=== PATIENT | female | born 1960 | race Caucasian/White ===

== ENCOUNTER → 2016-09-11 | Outpatient (CLI) | payer OTHER ==
--- NOTE | 2016-09-11 14:37 | DI ---
XR ELBOW 2VW,09/11/2016 1:38 PM: Clinical History: Left elbow pain Previous Exam: November 06, 2015 Findings: 3 views of the left elbow are obtained, and demonstrate anatomic alignment without fractures. There i s no evidence of elbow joint effusion. There is no fracture. Impression: Normal left elbow.
== END ==
LOC: MOB RAD 13:45
PROVIDERS: ATTEND Nurse Practitioner Family
DX: M25.522 Pain in left elbow (principal)
CPT/HCPCS: 73070

== ENCOUNTER → 2016-09-18 | Outpatient (CLI) | payer OTHER ==
[2016-09-18 12:06] LABS: HEMATOCRIT 43.6 % (37.0-47.0); HEMOGLOBIN 15.1 g/dL (12.0-16.0); MEAN CORPUSCULAR HEMOGLOBIN 33.6 PG (27-31); MEAN CORPUSCULAR HGB CONC 34.6 g/dL (33-37); MEAN PLATELET VOLUME 8.2 FL (7.4-12.2); RED BLOOD COUNT 4.5 10^6/uL (4.20-5.40); WHITE BLOOD COUNT 6.7 10^3/uL (4.8-10.8)
[2016-09-18 12:35] LABS: AMYLASE 75 U/L (30-110); ASPARTATE AMINO TRANSFERASE 48 IU/L (8-39); BILIRUBIN,TOTAL 0.7 mg/dL (0.3-1.2); BLOOD UREA NITROGEN 9 mg/dL (7-22); CALCIUM 9.9 mg/dL (8.7-10.7); CHLORIDE 104 meq/L (98-112); CREATININE 0.6 mg/dL (0.50-1.20); EST GLOMERULAR FILTRATION > 60 (>60 ml/min/1.73m(2)); GLUCOSE 99 mg/dL (78-110); POTASSIUM 5.1 meq/L (3.8-5.2); TOTAL PROTEIN 8.9 g/dL (6.1-8.0)
[2016-09-18 12:43] LABS: SODIUM 139 meq/L (135-145)
--- NOTE | 2016-09-18 19:15 | DI ---
CT ABD W/WO CN AND PELVIS W/W0,09/18/2016 11:46 AM: Clinical History: Abdominal pain. Previous Exam: May 02, 2016 Findings: Multiple helically acquired CT images are obtained through the abdomen and pelvis after administratio n of oral contrast. There are also and images obtained following the intravenous administration of 95 cc of Isovue 300. There is no evidence of free air nor free fluid. There are no renal stones identified. Peripheral vascular calcifications are seen. The lung bases are clear. Patient is status post cholecystectomy. There are multiple colonic diverticula throughout the sigmoid colon without evidence of acute diverti culitis. There is no mesenteric nor retroperitoneal lymphadenopathy. Impression: No acute intra-abdominal pathology.
== END ==
LOC: CT 11:33
PROVIDERS: ATTEND Nurse Practitioner Family
DX: R10.84 Generalized abdominal pain (principal); F17.210 Nicotine dependence, cigarettes, uncomplicated
CPT/HCPCS: 36415; 74178; 80053; 82150; 83690; 85027

== ENCOUNTER → 2016-12-10 | Outpatient (CLI) | payer OTHER ==
--- NOTE | 2016-12-10 10:03 | DI ---
US PELVIC LIMITED (NON-OB),12/10/2016 7:46 AM: Clinical History: Pelvic pain Previous Exam: None at this facility. Findings: Static and real-time imaging of the right inguinal area demonstrate no evidence of herniation on Vals bolden or without Valsalva. Physical examination revealed some tenderness to deep palpation, but there was no abnormal mass ident ified within the region. Impression: No evidence of hernia.
== END ==
LOC: US 07:42
PROVIDERS: ATTEND Nurse Practitioner Family
DX: R10.2 Pelvic and perineal pain (principal)
CPT/HCPCS: 76857

== ENCOUNTER → 2017-01-24 | Outpatient (CLI) | payer OTHER ==
[2017-01-24 09:22] LABS: BASOPHILS # (AUTO) 0.05 10*3/UL; BASOPHILS % (AUTO) 0.8 % (0-1); EOSINOPHILS # (AUTO) 0.15 10*3/UL; EOSINOPHILS % (AUTO) 2.3 % (0-8); HEMATOCRIT 46.9 % (37.0-47.0); LYMPHOCYTES # (AUTO) 1.69 10*3/uL; MEAN CORPUSCULAR HEMOGLOBIN 33.4 PG (27-31); MEAN CORPUSCULAR HGB CONC 34.1 g/dL (33-37); MEAN CORPUSCULAR VOLUME 97.9 FL (81-99); MEAN PLATELET VOLUME 7.7 FL (7.4-12.2); MONOCYTES # (AUTO) 0.58 10*3/UL (0.3-0.8); NEUTROPHILS # (AUTO) 3.96 10*3/UL; NEUTROPHILS % (AUTO) 61.2 % (50-80); RED BLOOD COUNT 4.79 10^6/uL (4.20-5.40)
[2017-01-24 10:08] LABS: BLOOD UREA NITROGEN 6 mg/dL (7-22); BUN/CREATININE RATIO 8.57 (6-20); CALCIUM 9.5 mg/dL (8.7-10.7); EST GLOMERULAR FILTRATION > 60 (>60 ml/min/1.73m(2)); SERUM ALBUMIN 3.9 g/dL (3.5-4.8)
[2017-01-24 10:20] LABS: PLATELET MORPHOLOGY COMMENT NORMAL MORPHOLOGY (NORM); RBC MORPHOLOGY COMMENT NORMAL MORPHOLOGY (NORM); WBC MORPHOLOGY COMMENT NORMAL MORPHOLOGY (NORM)
[2017-01-25 14:01] LABS: A/G RATIO 0.71 (()); ALB PEP SER 3.2 g/dL (3.4-4.7); ALP1 GLOB 0.3 g/dL (0.1-0.3); ALP2 GLOB 1.1 g/dL (0.6-1.0); GAMMA GLOBS 2.2 g/dL (0.6-1.6)
[2017-01-25 15:27] LABS: KAPPA FREE LIGHT CHAINS 6.74 mg/dL (()); KAPPA/LAMBDA FLC RATIO 5.44 (()); LAMBDA FREE LIGHT CHAINS 1.24 mg/dL (())
== END ==
LOC: LAB 07:30
PROVIDERS: ATTEND Internal Medicine
DX: E88.09 Other disorders of plasma-protein metabolism, not elsewhere classified (principal)
CPT/HCPCS: 36415; 80053; 82784; 83883; 84155; 84165; 85025